=== PATIENT | male | born 1975 | race Caucasian/White ===

== ENCOUNTER → 2017-02-09 | Outpatient (CLI) | payer BC ==
[~2017-02-09] MED LIST: Albuterol 0.083% 2.5 MG/3 ML Neb Soln NEB ONE
== END ==
LOC: MW.RT 13:58
PROVIDERS: ATTEND Internal Medicine
DX: R06.02 Shortness of breath (principal)
CPT/HCPCS: 94060; 94727; 94729

== ENCOUNTER 2017-11-18 10:27 | Emergency (ER) | payer BC ==
[2017-11-18] MEDS ORDERED: Ondansetron 4 MG/2 ML SDV IVPUSH ONE ×2 (10:36→12:59)
[2017-11-18] MEDS ORDERED: Sodium Chloride 0.9% 1,000 ML IV ONE (10:36)
[2017-11-18] MEDS ORDERED: Ondansetron 4 MG/2 ML SDV ONE (10:38)
--- NOTE | 2017-11-18 11:35 | EDM.PDOC ---
ED HPI GENERAL MEDICAL PROBLEM - General Chief Complaint: General Stated Complaint: ENTIRE BODY FEELS WEAK Time Seen by Provider: 11/18/17 10:33 Source of Information: Reports: Patient History Limitations: Reports: No Limitations - History of Present Illness INITIAL COMMENTS - FREE TEXT/NARRATIVE: History of present illness: [42-year-old male comes in complaining of nausea. Patient indicates he feels unwell and has gotten progressively worse over the day. Patient has taken Pepto- Bismol to no avail is sitting in the recliner in the room actively vomiting upon presentation.] Review of systems: As per history of present illness and below otherwise all systems reviewed and negative. Past medical history: As per history of present illness and as reviewed below otherwise noncontributory. Surgical history: As per history of present illness and as reviewed below otherwise noncontributory. Social history: No reported history of drug or alcohol abuse. Family history: As per history of present illness and as reviewed below otherwise noncontributory. Physical exam: HEENT: Atraumatic, normocephalic, pupils reactive, negative for conjunctival pallor or scleral icterus, mucous membranes moist, throat clear, neck supple, nontender, trachea midline. Lungs: Clear to auscultation, breath sounds equal bilaterally, chest nontender. Heart: S1S2, regular, negative for clicks, rubs, or JVD. Abdomen: Soft, nondistended, nontender. Negative for masses or hepatosplenomegaly. Negative for costovertebral tenderness. Pelvis: Stable nontender. Genitourinary: Deferred. Rectal: Deferred. Extremities: Atraumatic, negative for cords or calf pain. Neurovascular unremarkable. Neuro: Awake, alert, oriented. Cranial nerves II through XII unremarkable. Cerebellum unremarkable. Motor and sensory unremarkable throughout. Exam nonfocal. Global assessment is benign save patients active vomiting upon arrival. Patient indicates that he's had chest pressure and pain for numerous weeks which is not new to him but the vomiting in fact has made it worse. Diagnostics: [Influenza AB, strep] Therapeutics: [IV fluid, Zofran] Impression: [#1Nausea #2vomiting] Plan: [Zofran for home] Definitive disposition and diagnosis as appropriate pending reevaluation and review of above. general body aches Pain Score (Numeric/FACES): 7 - Related Data Allergies Allergy/AdvReac Type Severity Reaction Status Date / Time No Known Allergies Allergy Verified 11/18/17 10:32 Home Meds: Home Meds Desvenlafaxine Succinate [Pristiq] 100 mg PO DAILY 06/08/16 [History] Pravastatin Sodium [Pravastatin (Pravachol)] 40 mg PO DAILY 06/08/16 [History] Levothyroxine Sodium [Synthroid] 25 mcg PO ACBREAKFAST 11/18/17 [History] Ondansetron [Zofran] 4 mg PO Q4H #30 tab 11/18/17 [Rx] Past Medical History Other HEENT History: wears glasses/contacts Cardiovascular History: Reports: High Cholesterol Respiratory History: Reports: Sleep Apnea Gastrointestinal History: Reports: GERD Musculoskeletal History: Reports: Fracture Neurological History: Reports: None Psychiatric History: Reports: Anxiety, Depression Endocrine/Metabolic History: Reports: Obesity/BMI 30+ Hematologic History: Reports: None Immunologic History: Reports: None Oncologic (Cancer) History: Reports: None Dermatologic History: Reports: None - Past Surgical History Cardiovascular Surgical History: Reports: None Other Male Surgeries/Procedures: orchiopexy Other Musculoskeletal Surgeries/Procedures:: hx repair of fx left ankle Social & Family History - Family History Family Medical History: Noncontributory - Tobacco Use Smoking Status *Q: Never Smoker Second Hand Smoke Exposure: No - Caffeine Use Caffeine Use: Reports: Coffee - Recreational Drug Use Recreational Drug Use: No Drug Use in Last 12 Months: No ED ROS GENERAL - Review of Systems Review Of Systems: See Below (See history of present illness) ED EXAM, GENERAL - Physical Exam Exam: See Below (See history of present illness) Course - Orders/Labs/Meds Orders: Active Orders 24 hr Category Date Time Status CBC WITH AUTO DIFF [HEME] Stat Lab 11/18/17 10:45 Received CMP [COMPREHENSIVE METABOLIC PN,CMP] [CHEM] Stat Lab 11/18/17 10:45 Received CULTURE STREP A CONFIRMATION [] Stat Lab 11/18/17 12:30 Results STREP SCRN A RAPID W CULT CONF [RM] Stat Lab 11/18/17 12:30 Results Desvenlafaxine Succinate [Pristiq] Med 11/19/17 09:00 Active 100 mg PO DAILY Medication Orders Non-Formulary Medication (Desvenlafaxine Succinate [Pristiq]) 100 mg PO DAILY MEDHAT Meds: Medications Generic Name Dose Route Start Last Admin Trade Name Jalilq PRN Reason Stop Dose Admin Non-Formulary Medication 100 mg 11/19/17 09:00 Desvenlafaxine Succinate [Pristiq] PO DAILY MEDHAT Discontinued Medications Generic Name Dose Route Start Last Admin Trade Name Jalilq PRN Reason Stop Dose Admin Sodium Chloride 1,000 mls @ 999 mls/hr 11/18/17 10:36 11/18/17 10:45 Normal Saline IV 11/18/17 11:36 999 mls/hr STAT ONE Administration Ondansetron HCl 8 mg 11/18/17 10:36 11/18/17 10:51 Zofran IVPUSH 11/18/17 10:37 8 mg ONETIME ONE Administration Ondansetron HCl Confirm 11/18/17 10:38 11/18/17 10:51 Zofran Administered 11/18/17 10:39 Not Given Dose 8 mg .ROUTE .STK-MED ONE Ondansetron HCl 8 mg 11/18/17 12:59 Zofran IVPUSH 11/18/17 13:00 ONETIME ONE Departure - Departure Time of Disposition: 13:12 Disposition: Home, Self-Care 01 Condition: Good Clinical Impression: Nausea and vomiting in adult patient - Discharge Information Forms: ED Department Discharge Additional Instructions: The following information is given to patients seen in the emergency department who are being discharged to home. This information is to outline your options for follow-up care. We provide all patients seen in our emergency department with a follow-up referral. The need for follow-up, as well as the timing and circumstances, are variable depending upon the specifics of your emergency department visit. If you don't have a primary care physician on staff, we will provide you with a referral. We always advise you to contact your personal physician following an emergency department visit to inform them of the circumstance of the visit and for follow-up with them and/or the need for any referrals to a consulting specialist. The emergency department will also refer you to a specialist when appropriate. This referral assures that you have the opportunity for follow-up care with a specialist. All of these measure are taken in an effort to provide you with optimal care, which includes your follow-up. Under all circumstances we always encourage you to contact your private physician who remains a resource for coordinating your care. When calling for follow-up care, please make the office aware that this follow-up is from your recent emergency room visit. If for any reason you are refused follow-up, please contact the [facility] Emergency Department at and asked to speak to the emergency department charge nurse. Take medication as discussed Consume clear liquids for the next 24-72 hours as able slowly advanced diet with things like bananas rice applesauce and toast Primary care in 2-3 days Return to ED as needed as discussed - My Orders Last 24 Hours: My Active Orders 11/19/17 09:00 Desvenlafaxine Succinate [Pristiq] 100 mg PO DAILY 11/18/17 10:45 CBC WITH AUTO DIFF [HEME] Stat CMP [COMPREHENSIVE METABOLIC PN,CMP] [CHEM] Stat 11/18/17 12:30 CULTURE STREP A CONFIRMATION [RM] Stat STREP SCRN A RAPID W CULT CONF [RM] Stat - Assessment/Plan Last 24 Hours: My Active Orders 11/19/17 09:00 Desvenlafaxine Succinate [Pristiq] 100 mg PO DAILY 11/18/17 10:45 CBC WITH AUTO DIFF [HEME] Stat CMP [COMPREHENSIVE METABOLIC PN,CMP] [CHEM] Stat 11/18/17 12:30 CULTURE STREP A CONFIRMATION [RM] Stat STREP SCRN A RAPID W CULT CONF [RM] Stat
[2017-11-18 13:23] LABS: CHLORIDE,CL 107 mmol/L (98-110); SODIUM,NA 141 mmol/L (136-146)
[2017-11-18 13:31] VITALS: BP 125/70
[2017-11-19] MEDS ORDERED: DESVENLAFAXINE SUCCINATE 100 MG PO SCH (09:00)
== END 2017-11-18 13:35 | disposition home or self-care (01) ==
LOC: MW.ED 10:27
DX: R11.2 Nausea with vomiting, unspecified (principal); E78.00 Pure hypercholesterolemia, unspecified; Z79.899 Other long term (current) drug therapy
CPT/HCPCS: 36415; 80053; 85025; 87081; 87804; 87880; 93005; 96361; 96374; 99283; J2405; J7040

== ENCOUNTER 2022-12-27 10:24 | Day surgery (SDC) | payer BC ==
[~2022-12-27 10:24] MED LIST changes: -Albuterol 0.083% 2.5 MG/3 ML Neb Soln NEB ONE; +Lactated Ringers 1,000 ML IV SCH
[2022-12-27] MEDS ORDERED: fentaNYL 100 MCG/2 ML SDV ONE (13:40)
[2022-12-27] MEDS ORDERED: Propofol 200 MG/20 ML SDV ONE ×2 (13:40→14:21)
[2022-12-27] MEDS ORDERED: Midazolam 1 MG/ML 2 ML SDV ONE (13:40)
[2022-12-27] MEDS ORDERED: Ketamine 500 mg/10 ML MDV ONE (13:44)
[2022-12-27] MEDS ORDERED: ePHEDrine 50 MG/ML SDV ONE (14:20)
[2022-12-27 15:02] VITALS: BP 115/66; PULSE 73
== END 2022-12-27 15:40 | disposition home or self-care (01) ==
LOC: MW.SDS 10:24
PROVIDERS: ATTEND Surgery
DX: Z12.11 Encounter for screening for malignant neoplasm of colon (principal); D12.2 Benign neoplasm of ascending colon; K64.8 Other hemorrhoids; K21.9 Gastro-esophageal reflux disease without esophagitis; F41.9 Anxiety disorder, unspecified; F32.A Depression, unspecified; E78.00 Pure hypercholesterolemia, unspecified; G47.33 Obstructive sleep apnea (adult) (pediatric); E16.2 Hypoglycemia, unspecified; E03.9 Hypothyroidism, unspecified; E55.9 Vitamin D deficiency, unspecified; Z79.899 Other long term (current) drug therapy; Z79.890 Hormone replacement therapy; Z98.890 Other specified postprocedural states; Z68.32 Body mass index [BMI] 32.0-32.9, adult
CPT/HCPCS: J2250; J2704; J3010; J3490; J7120